=== PATIENT | male | born 1995 | race Caucasian/White ===

== ENCOUNTER 2021-01-18 12:21 | Emergency (ER) | payer OTHER ==
[~2021-01-18] VITALS: Ht 182.9 cm; Wt 86.2 kg
[2021-01-18 12:22] VITALS: BP 132/63
--- NOTE | 2021-01-18 13:21 | REP ---
INDICATION: CHEST PAIN COMPARISON: None. TECHNIQUE: PA and lateral. FINDINGS: The mediastinum and cardiac silhouette are normal. The lung perkins are clear and without acute consolidation, effusion, or pneumothorax. The skeletal structures are intact and normal. IMPRESSION: No acute cardiopulmonary process. <Electronically signed by Juan R Loyola > 01/18/21 [id number]
[2021-01-18 16:53] LABS: BASO % 0.5 % (0.0-1.0); EOS # 0.1 10^3/uL (0.0-0.5); HEMATOCRIT 42.5 % (42.0-52.0); LYMPH # 2.3 10^3/uL (1.5-5.0); LYMPH % 37.7 % (24.0-44.0); MEAN CORPUSCULAR HEMOGLOBIN 28.2 pg (27.0-33.0); MEAN CORPUSCULAR HGB CONC 32.9 g/dl (32.0-36.5); MEAN CORPUSCULAR VOLUME 85.7 fl (80.0-96.0); MONO # 0.5 10^3/uL (0.0-0.8); MONO % 8.4 % (2.0-8.0); NEUTROPHILS # 3.1 10^3/uL (1.5-8.5); NEUTROPHILS % 51.1 % (36.0-66.0); PLATELET COUNT, AUTOMATED 285 10^3/uL (150-450); RED BLOOD COUNT 4.96 10^6/uL (4.30-6.10)
[2021-01-18 16:56] LABS: ALT/SGPT 36 U/L (12-78); BILIRUBIN,DIRECT 0.1 MG/DL (0.0-0.2); BILIRUBIN,TOTAL 0.4 MG/DL (0.2-1.0); BLOOD UREA NITROGEN 13 MG/DL (7-18); CALCIUM LEVEL 9.2 MG/DL (8.5-10.1); CARBON DIOXIDE LEVEL 29 MEQ/L (21-32); CHLORIDE LEVEL 108 MEQ/L (98-107); CK-MB VALUE MASS < 1.0 NG/ML (<3.6); CPK CREATINE PHOSPHOKINASE 124 U/L (39-308); CREATININE FOR GFR 0.93 MG/DL (0.70-1.30); GLOMERULAR FILTRATION RATE > 60.0 (>60); GLUCOSE, FASTING 92 MG/DL (70-100); LIPASE 194 U/L (73-393); MB/CK RELATIVE INDEX 0.81 (< OR =4); SODIUM LEVEL 140 MEQ/L (136-145); THYROID STIMULATING HORMONE 0.869 uIU/ML (0.358-3.740); TOTAL PROTEIN 7.2 GM/DL (6.4-8.2); TROPONIN I < 0.02 NG/ML (< 0.10)
[2021-01-18 18:03] LABS: ERYTHROCYTE SEDIMENTATION RATE 3 mm/hr (0-15)
--- NOTE | 2021-01-19 08:28 | ECGEPIP ---
[facility] - ED Test Date: 2021-01-18 Pat Name: JANE HOPKINS Department: Room: - Gender: Male Medical Records Specialist: SMITH : [id number] Requested By: ISAK Lemus Order Number: [id number] Reading MD: Brannon Lopez Measurements Intervals [place] Rate: 49 P: 41 MT: 176 QRS: 55 QRSD: 98 T: 48 QT: 440 QTc: 397 Interpretive Statements Sinus bradycardia with sinus arrhythmia BENIGN EARLY REPOLARIZATION NO PRIORS FOR COMPARISON Electronically Signed on 01-19-2021 8:27:47 EDT by Brannon Lopez
== END 2021-01-18 19:04 | disposition home or self-care (01) ==
LOC: M ED 12:21
DX: R07.9 Chest pain, unspecified (principal); R00.1 Bradycardia, unspecified; Z82.49 Family history of ischemic heart disease and other diseases of the circulatory system; Z88.8 Allergy status to other drugs, medicaments and biological substances